=== PATIENT | male | born 1970 | race Caucasian/White ===

== ENCOUNTER 2018-03-28 23:27 | Emergency (ER) | payer BC ==
[2018-03-29] MEDS ORDERED: DIPHENHYDRAMINE 25 MG TAB/CAP ONE (00:06)
[2018-03-29] MEDS ORDERED: METOCLOPRAMIDE 10 MG/2mL INJ ONE (00:06)
[2018-03-29] MEDS ORDERED: NA CHLORIDE 0.9% 100 ML IV ONE (00:07)
[2018-03-29] MEDS ORDERED: KETOROLAC 30 MG/ML INJ ONE (00:07)
--- NOTE | 2018-03-29 01:46 | EDPHYS ---
Physician Documentation [facility] Name: Eliu Ba Age: 47 yrs Sex: Male : 1970 Arrival Date: 03/28/2018 Time: 23:30 Bed 30 Private MD: ED Physician Samson Bueno HPI: 03/29 01:43 This 47 yrs old Male presents to ER via Ambulatory with complaints of jr8 Headache. 01:43 The patient complains of pain to the diffusley . The patient describes the headache as jr8 pounding, a pressure. Onset: The symptoms/episode began/occurred acutely, 2 day(s) ago. Associated signs and symptoms: The patient has no apparent associated signs or symptoms. Severity of symptoms: At its worst the pain was moderate, in the emergency department the pain is unchanged. Headache History: The patient has had previous headaches and this one is different than previous episodes, and this one is more severe than previous episodes. The patient has not experienced similar symptoms in the past. The patient has not recently seen a physician. Historical: - Allergies: 03/28 23:39 No Known Allergies; mg2 - Home Meds: 23:39 None [Active]; mg2 - PMHx: 23:39 None; mg2 - PSHx: 23:39 None; mg2 - Immunization history:: Flu vaccine is not up to date. - Social history:: Smoking status: Patient/guardian denies using tobacco, Patient uses alcohol, occasionally. Patient/guardian denies using street drugs, IV drugs. - Ebola Screening: : No symptoms or risks identified at this time. ROS: 03/29 01:43 Eyes: Negative for injury, pain, redness, and discharge, ENT: Negative for injury, jr8 pain, and discharge, Neck: Negative for injury, pain, and swelling, Cardiovascular: Negative for chest pain, palpitations, and edema, Respiratory: Negative for shortness of breath, cough, wheezing, and pleuritic chest pain, Abdomen/GI: Negative for abdominal pain, nausea, vomiting, diarrhea, and constipation, Back: Negative for injury and pain, MS/Extremity: Negative for injury and deformity, Skin: Negative for injury, rash, and discoloration. Neuro: Positive for headache, Negative for altered mental status, dizziness, gait disturbance, hearing loss, loss of consciousness, numbness, seizure activity, speech changes, syncope, near syncope, tingling, tinnitus, tremor, visual changes, weakness. Exam: 01:43 Eyes: Pupils equal round and reactive to light, extra-ocular motions intact. Lids and jr8 lashes normal. Conjunctiva and sclera are non-icteric and not injected. Cornea within normal limits. Periorbital areas with no swelling, redness, or edema. ENT: Nares patent. No nasal discharge, no septal abnormalities noted. Tympanic membranes are normal and external auditory canals are clear. Oropharynx with no redness, swelling, or masses, exudates, or evidence of obstruction, uvula midline. Mucous membranes moist. Neck: Trachea midline, no thyromegaly or masses palpated, and no cervical lymphadenopathy. Supple, full range of motion without nuchal rigidity, or vertebral point tenderness. No Meningismus. Cardiovascular: Regular rate and rhythm with a normal S1 and S2. No gallops, murmurs, or rubs. Normal PMI, no JVD. No pulse deficits. Respiratory: Lungs have equal breath sounds bilaterally, clear to auscultation and percussion. No rales, rhonchi or wheezes noted. No increased work of breathing, no retractions or nasal flaring. Abdomen/GI: Soft, non-tender, with normal bowel sounds. No distension or tympany. No guarding or rebound. No evidence of tenderness throughout. Back: No spinal tenderness. No costovertebral tenderness. Full range of motion. Skin: Warm, dry with normal turgor. Normal color with no rashes, no lesions, and no evidence of cellulitis. MS/ Extremity: Pulses equal, no cyanosis. Neurovascular intact. Full, normal range of motion. Neuro: Awake and alert, GCS 15, oriented to person, place, time, and situation. Cranial nerves II-XII grossly intact. Motor strength 5/5 in all extremities. Sensory grossly intact. Cerebellar exam normal. Normal gait. Vital Signs: 03/28 23:38 BP 137 / 98; Pulse 72; Resp 18; Temp 97.8; Pulse Ox 100% on R/A; Weight 108.86 kg; mg2 Height 5 ft. 11 in. (180.34 cm); Pain 6/10; 03/29 00:45 BP 122 / 89; Pulse 78; Resp 18; Pulse Ox 100% on R/A; Pain 2/10; mg2 01:35 BP 127 / 85; Pulse 80; Resp 18; Pulse Ox 98% on R/A; mg2 02:15 BP 130 / 81; Pulse 81; Resp 18; Pulse Ox 100% on R/A; Pain 0/10; mg2 03/28 23:38 Body Mass Index 33.47 (108.86 kg, 180.34 cm) mg2 MDM: 03/28 23:44 Patient medically screened. jr8 03/29 01:43 Data reviewed: vital signs, nurses notes, radiologic studies, CT scan, and as a result, jr8 I will discharge patient. Data interpreted: Pulse oximetry: on room air is 98 %. Interpretation: normal. Counseling: I had a detailed discussion with the patient and/or guardian regarding: the historical points, exam findings, and any diagnostic results supporting the discharge/admit diagnosis, radiology results, the need for outpatient follow up, a family practitioner, to return to the emergency department if symptoms worsen or persist or if there are any questions or concerns that arise at home. Response to treatment: the patient's symptoms have markedly improved after treatment. 03/28 23:56 Order name: CT Head Brain wo Cont jr8 03/28 23:55 Order name: IV; Complete Time: 00:09 8 Administered Medications: 00:08 Drug: Reglan 10 mg Route: IVP; Site: right hand; mg2 02:10 Follow up: Response: No adverse reaction; Marked relief of symptoms mg2 00:08 Drug: TORadol 30 mg Route: IVP; Site: right hand; mg2 02:10 Follow up: Response: No adverse reaction; Marked relief of symptoms mg2 00:08 Drug: Benadryl 25 mg Route: PO; mg2 02:09 Follow up: Response: No adverse reaction; Marked relief of symptoms mg2 Disposition: 06:51 Co-signature as Attending Physician, Samson Bueno MD I agree with the assessment and delroy plan of care. Disposition: 03/29/18 01:46 Discharged to Home. Impression: Migraine. - Condition is Stable. - Discharge Instructions: Migraine Headache. - Medication Reconciliation Form, Thank You Letter, Antibiotic Education, Prescription Opioid Use form. - Follow up: Private Physician; When: 2 - 3 days; Reason: Recheck today's complaints, Continuance of care, Re-evaluation by your physician. - Problem is new. - Symptoms have improved. Signatures: Dispatcher [employer] EDMS Samson Bueno MD MD cha Roszak, Josh, PA PA jr8 Edmund Colmenares, RN RN mg2 Corrections: (The following items were deleted from the chart) 02:16 01:46 03/29/2018 01:46 Discharged to Home. Impression: Migraine. Condition is Stable. mg2 Forms are Medication Reconciliation Form, Thank You Letter, Antibiotic Education, Prescription Opioid Use. Follow up: Private Physician; When: 2 - 3 days; Reason: Recheck today's complaints, Continuance of care, Re-evaluation by your physician. Problem is new. Symptoms have improved. jr8
--- NOTE | 2018-03-29 01:46 | ER ---
Nurse's Notes [facility] Name: Eliu Ba Age: 47 yrs Sex: Male : 1970 Arrival Date: 03/28/2018 Time: 23:30 Bed 30 Private MD: Diagnosis: Migraine Presentation: 03/28 23:37 Presenting complaint: Patient states: he has a continuous headache for 3 days now. mg2 denies n/v. Transition of care: patient was not received from another setting of care. Onset of symptoms was March 26, 2018. Risk Assessment: Do you want to hurt yourself or someone else? Patient reports no desire to harm self or others. Initial Sepsis Screen: Does the patient meet any 2 criteria? No. Patient's initial sepsis screen is negative. Does the patient have a suspected source of infection? No. Patient's initial sepsis screen is negative. Care prior to arrival: None. 23:37 Method Of Arrival: Ambulatory mg2 23:37 Acuity: CHRIS 4 mg2 Triage Assessment: 03/29 00:45 Headache History: The patient has had previous headaches and this one is similar to mg2 previous episodes. General: Appears in no apparent distress. comfortable, Behavior is calm, cooperative. Pain: Complains of pain in head Also complains of no other associated symptoms. Historical: - Allergies: 03/28 23:39 No Known Allergies; mg2 - Home Meds: 23:39 None [Active]; mg2 - PMHx: 23:39 None; mg2 - PSHx: 23:39 None; mg2 - Immunization history:: Flu vaccine is not up to date. - Social history:: Smoking status: Patient/guardian denies using tobacco, Patient uses alcohol, occasionally. Patient/guardian denies using street drugs, IV drugs. - Ebola Screening: : No symptoms or risks identified at this time. Screenin:40 Abuse screen: Denies threats or abuse. Denies injuries from another. Nutritional mg2 screening: No deficits noted. Tuberculosis screening: No symptoms or risk factors identified. Fall Risk None identified. Assessment: 23:40 General: Appears in no apparent distress. uncomfortable, Behavior is calm, cooperative. mg2 Pain: Complains of pain in head Pain does not radiate. Pain currently is 6 out of 10 on a pain scale. Quality of pain is described as aching, Pain began gradually, 2-3 days ago. Is continuous. Neuro: Level of Consciousness is awake, alert, obeys commands, Oriented to person, place, time, situation. Neuro: Reports headache parietal area, frontal area, occipital area. Cardiovascular: Capillary refill < 3 seconds Patient's skin is warm and dry. Respiratory: Airway is patent Respiratory effort is even, unlabored, Respiratory pattern is regular, symmetrical. GI: No signs and/or symptoms were reported involving the gastrointestinal system. : No signs and/or symptoms were reported regarding the genitourinary system. EENT: No signs and/or symptoms were reported regarding the EENT system. Derm: Skin is intact, is healthy with good turgor, Skin is pink, warm \T\ dry. normal. Musculoskeletal: No signs and/or symptoms reported regarding the musculoskeletal system. 03/29 01:36 Reassessment: Patient appears in no apparent distress at this time. Patient and/or mg2 family updated on plan of care and expected duration. Pain level reassessed. Patient is alert, oriented x 3, equal unlabored respirations, skin warm/dry/pink. 02:15 Reassessment: Patient appears in no apparent distress at this time. Patient and/or mg2 family updated on plan of care and expected duration. Pain level reassessed. Patient is alert, oriented x 3, equal unlabored respirations, skin warm/dry/pink. Vital Signs: 03/28 23:38 BP 137 / 98; Pulse 72; Resp 18; Temp 97.8; Pulse Ox 100% on R/A; Weight 108.86 kg; mg2 Height 5 ft. 11 in. (180.34 cm); Pain 6/10; 03/29 00:45 BP 122 / 89; Pulse 78; Resp 18; Pulse Ox 100% on R/A; Pain 2/10; mg2 01:35 BP 127 / 85; Pulse 80; Resp 18; Pulse Ox 98% on R/A; mg2 02:15 BP 130 / 81; Pulse 81; Resp 18; Pulse Ox 100% on R/A; Pain 0/10; mg2 03/28 23:38 Body Mass Index 33.47 (108.86 kg, 180.34 cm) mg2 ED Course: 03/28 23:30 Patient arrived in ED. ag3 23:36 Edmund Colmenares, JOLEEN is Primary Nurse. mg2 23:38 Triage completed. mg2 23:40 Arm band placed on. mg2 23:40 No provider procedures requiring assistance completed. mg2 23:42 Patient has correct armband on for positive identification. Pulse ox on. NIBP on. mg2 23:44 Keron Peñaloza PA is PHCP. jr8 23:44 Samson Bueno MD is Attending Physician. jr8 03/29 00:09 Inserted saline lock: 22 gauge in right hand, using aseptic technique. mg2 00:26 CT Head Brain wo Cont In Process Unspecified. EDMS 01:46 CT completed. Patient tolerated procedure well. Patient moved to CT via wheelchair. mw3 Patient moved back from CT. 02:15 IV discontinued, intact, bleeding controlled, No redness/swelling at site. Pressure mg2 dressing applied. Administered Medications: 00:08 Drug: Reglan 10 mg Route: IVP; Site: right hand; mg2 02:10 Follow up: Response: No adverse reaction; Marked relief of symptoms mg2 00:08 Drug: TORadol 30 mg Route: IVP; Site: right hand; mg2 02:10 Follow up: Response: No adverse reaction; Marked relief of symptoms mg2 00:08 Drug: Benadryl 25 mg Route: PO; mg2 02:09 Follow up: Response: No adverse reaction; Marked relief of symptoms mg2 Outcome: 01:46 Discharge ordered by . jr8 02:15 Discharged to home ambulatory. mg2 02:15 Condition: stable 02:15 Discharge instructions given to patient, Instructed on discharge instructions, follow up and referral plans. Demonstrated understanding of instructions, follow-up care. 02:16 Patient left the ED. mg2 Signatures: Dispatcher [employer] EDWI Keron Peñaloza PA PA jr8 Edmund Colmenares RN [place] [facility] [place] Love mw3 Honey Montoya 3
--- NOTE | 2018-03-29 08:27 | RAD REPORT ---
EXAM DESCRIPTION: CT - Head Brain Wo Cont - 03/29/2018 12:28 am CLINICAL HISTORY: Headache A preliminary report was provided at the time of the study and reviewed prior to final report. COMPARISON: None. TECHNIQUE: Axial 5 mm thick images of the head were obtained without IV contrast. All CT scans are performed using dose optimization technique as appropriate and may include automated exposure control or mA/KV adjustment according to patient size. FINDINGS: No intracranial hemorrhage, mass, edema or shift of mid-line structures. No acute infarcti on changes seen. No abnormal extra-axial fluid collections. Ventricles are normal. No atrophy or extension course counselor kam ischemic change. Mastoid air cells and visualized portions of the paranasal sinuses are clear. No acute bony findings. IMPRESSION: Negative non-contrast CT head examination.
== END 2018-03-29 02:16 | disposition home or self-care (01) ==
LOC: ER 23:27
DX: G43.909 Migraine, unspecified, not intractable, without status migrainosus (principal)
CPT/HCPCS: 70450; 96374; 96375; 99284; J2765